=== PATIENT | female | born 1965 | race Caucasian/White ===

== ENCOUNTER 2024-01-04 14:37 | Emergency (ER) | payer BC, SELFPAY ==
[2024-01-04 14:38] VITALS: BP 167/84; PULSE 72; RESP 15; TEMP 36.3; O2SAT 100; BMI 23.8
--- NOTE | 2024-01-04 14:56 | VDLE_ITS ---
Reason For Study: LLE Pain RIGHT LEFT CFV is compressible, spontaneous, phasic, GSV is normal. competent and demonstrates normal CFV is compressible, spontaneous, phasic, augmentation. competent, and demonstrates normal Procedure augmentation. This is a venous duplex using B-mode, color FV is compressible, spontaneous, phasic, flow and spectral Doppler. competent and demonstrates normal Exam performed portable in ED. augmentation. The exam was diagnostic. POP V is compressible, spontaneous, phasic, A preliminary report was called and/or faxed competent and demonstrates normal to Dr. Patel. augmentation. T/P Trunk is compressible. PTV is compressible. LT PerV is compressible. VL/Venous Duplex US, Unilateral Interpretation Summary Deep veins of the left lower extremity are patent and compressible segmentally. There is no evidence of left lower extremity deep vein thrombosis. Valvular competence appears intac t within the proximal deep venous system on the left . The left great saphenous vein appears patent a nd compressible segmentally. The right common femoral vein is patent and compressible . Ordering Physician: Freeman Patel Referring Physician: N/A Performed By: Jose Rivas RVT
--- NOTE | 2024-01-04 15:13 | EDS_ITS ---
HPI History of Present Illness Chief Complaint: Edema Narrative Narrative: Patient is a 58-year-old female past medical history of left bundle branch block, asthma who presented to the emergency department with chief complaint of left knee specifically behind her knee swelling. She states that she has done a lot of traveling in the last several months and noted that she is concerned that she may have a blood clot behind her knee. She states that she is from [facility] and is here visiting [place] for her son as he is visiting [place] [employer] for potential liberal [employer]. She states that she has never had a blood clot and notes that she has some difficulty clotting she states that she has been worked up several times and has been worked up for von Willebrand's disease and wound was negative. Patient states that she just has discomfort behind her left knee. Denies any trauma or injuries. [facility] Medical History LBBB (left bundle branch block) Asthma Home Medications ?Medication ?Instructions ?Recorded ?Last Taken ?Type albuterol sulfate 90 mcg/actuation 2 inh inhalation Q4H PRN shortness 01/04/24 Unknown History aerosol inhaler of breath or wheezing budesonide-formoterol HFA 160 1 inh inhalation BID 01/04/24 Unknown History mcg-4.5 mcg/actuation aerosol inhaler (Symbicort) Allergy/AdvReac Type Severity Reaction Status Date / Time No Known Allergies Allergy Verified 01/04/24 14:41 Social History Smoking Status: Unknown if ever smoked ROS ROS ED ROS Narrative Constitutional: Patient denies any fevers, chills, headaches, lightness, dizziness Eyes: Denies change in vision double vision blurry vision Cardiovascular: Denies chest pain palpitations Respiratory: Denies coughing wheezing shortness of breath Abdomen: Denies abdominal pain nausea vomiting diarrhea : Denies any urinary symptoms Neurological: Denies numbness weakness, tingling Musculoskeletal: Complains of behind the knee on the left side pain as noted above Skin: Denies rashes or lesions EXAM Physical Exam Narrative Exam Narrative: General: Patient lying in bed rest comfortably did not appear to be in acute distress Head: Atraumatic, normocephalic Eyes: PERRL bilaterally, EOMI bilaterally, no conjunctival injection noted Neck: Soft, supple, trachea midline Cardiovascular: Regular rate and rhythm no murmurs gallops rubs noted Respiratory: Clear to auscultation bilaterally no rales rhonchi wheeze noted Abdomen: Soft, nondistended, nontender to palpation, bowel sounds present x 4 Musculoskeletal: Patient has full range of motion of her left knee without any pain Extremities: DP pulses +2/4 in the bilateral lower extremities, no pedal edema on exam Neurological: Patient following commands knew that she was at [facility] year is 2023. Sensation grossly intact bilateral lower extremities Skin: Warm, dry, intact no rashes or lesions noted Const Vital Signs: 01/04/24 14:38 01/04/24 14:49 Temperature 97.3 F L Temperature Source Temporal Pulse Rate 72 Respiratory Rate 15 Respiratory Effort Normal Respiratory Pattern Normal Blood Pressure 167/84 H Blood Pressure Mean 111 Pulse Ox 100 Oxygen Delivery Method Room Air MDM MDM MDM Narrative Medical decision making narrative: Patient is a 58-year-old female who presents to the emergency department with a chief complaint of concern for blood clot. Patient will have a ultrasound performed and then be reevaluated. On the differential diagnose includes but not limited to DVT, superficial venous thrombosis, musculoskeletal strain, arthritis. Patient's venous duplex was negative for DVT. She was encouraged to ice, elevate and use ibuprofen/Tylenol [id number] for swelling and pain control. Patient was encouraged to follow-up with her primary care physician outpatient setting as she is from [facility]. She was encouraged to return with worsening symptoms or go to a local ER with any other concerns. She would like to go home this point time. All question concerns answered she is discharged home in stable condition. Discharge Plan Triage Chief Complaint: Edema ED Provider: Freeman Patel Dx/Rx/DC Orders Clinical Impression: Knee pain, left Prescriptions: No Action albuterol sulfate 90 mcg/actuation HFA aerosol inhaler 2 inh inhalation Q4H PRN (Reason: shortness of breath or wheezing) budesonide-formoterol [Symbicort] 160-4.5 mcg/actuation HFA aerosol inhaler 1 inh inhalation BID Primary Care Provider: WENDI MCGUIRE Referrals: WENDI MCGUIRE [Other] Activity Restrictions/Additional Instructions: Follow-up with your primary care physician in the outpatient setting. Go to a local ER or return here for worsening symptoms or other concerns. Ice, elevate, and use Tylenol ibuprofen [id number] for pain control. Print Language: Frisian Disposition Disposition: Home, Self Care
== END 2024-01-04 16:47 | disposition home or self-care (01) ==
PROVIDERS: Emergency Provider Emergency Medicine; Visit Provider Emergency Medicine
DX: M25.562 Pain in left knee (principal); J45.909 Unspecified asthma, uncomplicated; Z79.51 Long term (current) use of inhaled steroids; M79.89 Other specified soft tissue disorders
CPT/HCPCS: 93971; 99282